=== PATIENT | female | born 1950 | race Caucasian/White ===

== ENCOUNTER 2021-08-04 09:50 | Observation (INO) ==
[2021-08-04] MEDS ORDERED: IOPAMIDOL 100 ML BOTTLE IV ONE (09:51)
--- NOTE | 2021-08-04 09:58 | Emergency Department Note ---
HPI General Chief complaint: Stroke Symptoms Stated complaint: TIA symptoms Time Seen by Provider: 08/04/21 09:57 Source: patient and family Mode of arrival: EMS Limitations: no limitations History of Present Illness HPI Narrative: 71-year-old female presenting with altered mental status. Patient's daughters called EMS as patient was noted this morning to have some slurring of her words and facial droop that resolved after about 30 minutes. Patient's daughters note that since last Thursday she has been more confused than usual and not acting herself. At baseline she ambulates on her own and performs her own ADLs however since last Thursday patient has been more confused and agitated. She has mixed up some of her medications and done odd things like putting 2 socks on one foot. Patient seems to have poor short-term memory and has been prone to angry outbursts towards her daughters which is not normal for her. She reportedly has had a stroke in the past but denies any residual deficits. She is on Eliquis as she has a history of coronary artery disease status post single-vessel CABG, paroxysmal A. fib, and aortic valve replacement in 2020. Family states she has been compliant with her medications. Patient currently has no complaints and is unsure why she is in the emergency department. She denies headache, vision changes, numbness, weakness, paresthesias, or difficulty speaking. She reporte dly did have a fall last week and saw her primary physician but never had a CT of her brain after the fall. Patient is a poor historian but has no other complaints at this time. Related Data Home Medications Medication Instructions Recorded Confirmed aspirin 81 mg chewable tablet 81 mg PO QDAY 06/09/18 08/04/21 apixaban 5 mg tablet (Eliquis) 5 mg PO BID 08/04/21 08/04/21 ibuprofen 800 mg tablet 800 mg PO QDAY PRN 08/04/21 08/04/21 spironolactone 25 1 tab PO QDAY 08/04/21 08/04/21 mg-hydrochlorothiazide 25 mg tablet umeclidinium 62.5 mcg-vilanterol 1 puff CONTINUOUS INHALATION QDAY 08/04/21 08/04/21 25 mcg/actuation powdr for inhalation (Anoro Ellipta) Previous Rx's Medication Instructions Recorded atorvastatin 40 mg tablet 40 mg PO HS #90 tab 07/14/20 albuterol sulfate 90 mcg/actuation 2 puff INHALATION Q6H PRN #18 g 05/22/21 aerosol inhaler (Ventolin HFA) metoprolol succinate 50 mg 50 mg PO BID #180 tab 06/05/21 tablet,extended release 24 hr Allergies Allergy/AdvReac Type Severity Reaction Status Date / Time acetaminophen [From Percocet] Allergy Unknown Verified 08/02/21 10:45 Amoxicillin [From Augmentin] Allergy Nausea Verified 08/02/21 10:45 clavulanic acid Allergy Nausea Verified 08/02/21 10:45 [From Augmentin] codeine Allergy Nausea Verified 08/02/21 10:45 oxycodone [From Percocet] Allergy Unknown Verified 08/02/21 10:45 Penicillins Allergy Unknown Verified 08/02/21 10:45 bupropion [From Wellbutrin] AdvReac Unknown Unknown Verified 08/02/21 10:45 Erythromycin Base AdvReac Unknown Unknown Verified 08/02/21 10:45 meperidine AdvReac Unknown Unknown Verified 08/02/21 10:45 niacin AdvReac Unknown Unknown Verified 08/02/21 10:45 Sulfa (Sulfonamide AdvReac Unknown Unknown Verified 08/02/21 10:45 Antibiotics) Review of Systems ROS ROS Narrative: Narrative: Constitutional: Denies fever or chills Eyes: Denies vision change ENT ED: Denies throat pain Cardiovascular: Denies chest pain Respiratory: Denies shortness of breath or cough Gastrointestinal: Denies abdominal pain, nausea or vomiting Genitourinary: Denies dysuria or frequency Musculoskeletal: Denies back pain Integumentary: Denies rash Neurological: Reports confusion; Denies headache, weakness, numbness or dizziness Psychiatric: Denies anxiety Endocrine: Denies fatigue Hematological/Lymphatic: Denies easy bleeding PFSH Narrative Patient History Narrative: Narrative: Medical/Surgical/Family History All Active Problems (Updated 08/04/21 @ 14:21 by Domingo Jacques MD) TIA (transient ischemic attack) (Acute) Confusion (Acute) Memory loss or impairment (Acute) Asthma (Chronic) COPD (chronic obstructive pulmonary disease) (Chronic) Sleep apnea (Chronic) Other low back pain (Chronic) Right hip pain (Chronic) Prediabetes (Chronic) Hypothyroidism (acquired) (Chronic) Mixed hyperlipidemia (Chronic) Allergic rhinitis (Chronic) Urinary frequency (Chronic) Stage III chronic kidney disease (Chronic) Bladder spasms (Chronic) Hypothyroidism (Chronic) Stage III chronic kidney disease (Chronic) Lumbar radiculopathy (Chronic) Cervical radiculopathy (Chronic) Acute bronchitis (Chronic) Sinusitis (Chronic) Lichen sclerosus (Chronic) Encounter for medication monitoring (Chronic) Thyroid nodule (Chronic) Status post placement of stent in right coronary artery (Chronic) Status post stroke (Chronic) Hypertension, essential (Chronic) Acute bronchitis (Chronic) CAD (coronary artery disease) (Chronic ~2004) Heart attack (Chronic ~2012) Stroke (Chronic ~2014) Migraine (Chronic ~1994) Joint pain (Chronic ~1994) High cholesterol (Chronic ~2004) High blood pressure (Chronic ~1998) Heart trouble (Chronic ~2004) Bleeding tendency (Chronic) Seasonal allergies (Chronic) Arthritis (Chronic ~2005) Anemia (Chronic ~2015) Facial contusion (Chronic) Contusion of leg, left (Chronic) Medical History Anemia (~2015) Arthritis (~2005) Asthma Bleeding tendency CAD (coronary artery disease) (~2004) COPD (chronic obstructive pulmonary disease) Heart attack (~2012) Heart trouble (~2004) High blood pressure (~1998) High cholesterol (~2004) Joint pain (~1994) Migraine (~1994) Other low back pain Seasonal allergies Sleep apnea Stroke (~2014) Surgical History History of angioplasty (~2010) right leg History of appendectomy (~1958) History of cholecystectomy History of heart surgery (~2015) cardiac vascular surgery History of hysterectomy (~1988) History of tonsillectomy (~1952) Family History Grandmother Diabetes Maternal Hypertension Maternal Thyroid disease Maternal Grandfather Heart attack Maternal Mother Migraine Father Hypertension Social History Smoking Status: Former smoker Alcohol Intake Frequency: does not drink Substance Use: does not use Exam Narrative Narrative: Narrative: General Limitations: no limitations General appearance: Present alert, in no apparent distress and other (Confused, poor short-term memory) Head Head: Present atraumatic and normocephalic Eye Eye: Present normal appearance, PERRL, EOMI and visual williamson intact; Absent scleral icterus, conjunctival injection or nystagmus ENT ENT: Present mucous membranes moist Neck Neck: Present normal inspection, full ROM and trachea midline; Absent meningismus or lymphadenopathy Chest Chest: Present symmetric chest wall rise Respiratory Respiratory: Present normal lung sounds bilaterally; Absent respiratory distress, wheezes, stridor, accessory muscle use or prolonged expiratory phase Cardiovascular Cardiovascular: Present regular rate and normal rhythm; Absent systolic murmur or diastolic murmur Adbominal Abdominal: Present soft; Absent distention, tenderness, guarding, rebound, rigidity, organomegaly or mass Extremities Extremities: Present normal inspection; Absent pretibial edema Back Back: Present normal inspection; Absent CVA tenderness (R) or CVA tenderness (L) Neurological Neurological: Present alert, CN II-XII intact and other (Oriented x2. Knows her name and that she is at the hospital but does not know the year); Absent motor sensory deficit Expanded Neurological Patient oriented to: Present person and place; Absent time Speech: Present fluid speech; Absent receptive aphasia, expressive aphasia or dysarthria CRANIAL NERVES: EOM function (II, III, IV, ): Normal, facial sensation (V): Normal, facial palsy (VII): Normal, gag reflex (IX): Normal, spinal accessory function (XI): Normal and tongue deviation (XII): Normal CEREBELLAR FUNCTION: finger to nose: Normal Motor strength - LUE: 5/5 Motor strength - RUE: 5/5 Motor strength - LLE: 5/5 Motor strength - RLE: 5/5 UPPER MOTOR NEURON EXAM: antonio neglect: Normal SENSORY EXAM UPPER EXTREMITY: Normal: light touch SENSORY EXAM LOWER EXTREMITY: Normal: light touch Coma Scale Eye Opening: Spontaneous Coma Scale Motor Response: Obeys Commands Coma Scale Verbal Response: Confused Coma Scale Total: 14 Psychiatric Psychiatric: Present other (Confused and occasionally agitated) Skin Skin: Present warm (WNL) and dry Course Consultations Consultation #1: Dr. Dawson, hospitalist Time: 14:15 Consultation #2: Dr. Dawson, hospitalist Time: 14:50 Consultation #3: Dr. Dawson, hospitalist Time: 15:27 Vital Signs Vital signs: Vital Signs Temperature 98.3 F 08/04/21 10:00 Pulse Rate 79 08/04/21 10:00 Respiratory Rate 20 08/04/21 10:00 Blood Pressure 127/87 08/04/21 10:00 Pulse Oximetry (%) 100 08/04/21 10:00 Temperature 98.3 F 08/04/21 10:00 Pulse Rate 89 08/04/21 13:17 Respiratory Rate 19 08/04/21 15:00 Blood Pressure 116/90 08/04/21 15:00 Pulse Oximetry (%) 98 08/04/21 13:45 MDM MDM Narrative Medical decision making narrative: 71-year-old female presenting with altered mental status. She is confused and appears to have a significant personality change from her baseline which is concerning for subacute CVA. No other focal neurologic deficits on exam. CT br ain without contrast shows possible effacement of the sulci in the left temporal parietal region of the MCA distribution with no definitive hyperdense MCA sign seen. Labs notable for mild LUNA and mild hyponatremia to 130. UA with no signs of infection. CTAs of the head and neck are pending. Patient will likely need admission for possible subacute CVA evaluation. 1525: CTA shows stenosis of the internal carotid artery but no large vessel ischemic occlusion per Dr. Greenberg of radiology. I discussed the patient with Dr. Dawson who will admit for observation. Patient and her family updated on plan and patient is agreeable to staying in the hospital for further evaluation. Lab Data Lab results reviewed: Yes I reviewed the patient's lab results. Result diagrams: 08/04/21 10:16 08/04/21 10:16 Labs: Lab Results 08/04/21 08/04/21 08/04/21 Range/Units 10:16 10:16 11:41 WBC 10.2 (4.5-11.0) K/mcL RBC 4.20 (3.59-5.38) M/mcL Hgb 11.2 (11.2-15.7) g/dL Hct 34.0 L (34.1-44.9) % MCV 81.0 (80.0-100.0) fL MCH 26.7 (26.0-34.0) pg MCHC 32.9 (31.0-36.0) g/dL RDW 15.4 H (11.5-14.5) % Plt Count 272 (140-440) K/mcL MPV 9.7 (7.4-10.4) fL Neut % (Auto) 72.4 (38.0-78.0) % Lymph % (Auto) 18.5 (15.5-49.0) % [place] % (Auto) 6.3 (1.0-12.0) % Eos % (Auto) 2.3 (0.0-7.0) % Baso % (Auto) 0.5 (0.0-2.0) % Lymph # (Auto) 1.88 (1.50-4.80) K/mcL [place] # (Auto) 0.64 (0.10-0.90) K/mcL Eos # (Auto) 0.23 (0.00-0.70) K/mcL Baso # (Auto) 0.05 (0.00-0.30) K/mcL Absolute Neutrophils 7.35 (1.80-8.00) K/mcL Sodium 130 L (133-145) mmol/L Potassium 3.8 (3.3-5.1) mmol/L Chloride 92 L (96-108) mmol/L Carbon Dioxide 27 (22-30) mmol/L Anion Gap 11.0 (8.0-16.0) BUN 28 H (8-23) mg/dL Creatinine 1.4 H (0.6-1.1) mg/dL GFR Calculation 37 Glucose 122 H (70-105) mg/dL Calcium 9.3 (8.6-10.4) mg/dL Total Bilirubin 0.8 (0.1-1.0) mg/dL AST 13 (<32) U/L ALT 11 (<40) U/L Alkaline Phosphatase 107 (39-117) U/L Total Protein 6.5 (5.9-8.4) gm/dL Albumin 3.9 (3.2-5.2) gm/dL Globulin 2.6 (2.2-3.7) gm/dL Albumin/Globulin Ratio 1.5 (1.0-2.3) Urine Color Yellow Urine Appearance Clear (Clear) Urine pH 5.5 (5.0-9.0) Ur Specific [place] 1.015 (1.000-1.035) Urine Protein 30 mg/dl A (Negative) mg/dL Urine Glucose (UA) Negative (Negative) mg/dL Urine Ketones Negative (Negative) mg/dL Urine Occult Blood Trace-intact A (Negative) ricardo/mcL Urine Nitrate Negative (Negative) Urine Bilirubin Negative (Negative) mg/dL Urine Urobilinogen Normal mg/dL Ur Leukocyte Esterase Negative (Negative) /uL Urine RBC 0 (0-3) /hpf Urine WBC < 1 (0-4) /hpf Ur Squamous Epith Cells < 1 (0-4) /hpf Urine Bacteria None (0) /hpf Hyaline Casts 1 (0-2) /lph Urine Mucus Few A (None) /hpf Ur Culture Indicated? No ED POC Tests ED POC Tests: MANDI - SARS Antigen Negative Radiology Data Radiology results reviewed: Yes I reviewed the patient's radiology results. Radiology results narrative: CXR: No focal infiltrate, per my interpretation. CT brain without contrast: No acute intracranial hemorrhage. Possible effacement of sulci in the left temporal parietal region of the MCA distribution versus asymmetrically greater atrophy on the right, per outside radiology interpretation. CTA head and neck: No evidence of large vessel ischemic occlusion however there is stenosis of the left internal carotid artery and a lesion of the thyroid, per my discussion with Dr. Greenberg of radiology. EKG Data EKG #1: EKG attestation: Yes I reviewed and interpreted this EKG. EKG results narrative: Normal sinus rhythm at 79 bpm. Left bundle branch block present. No ST elevation or depression. Interpretation: no acute changes Discharge Plan Patient/Caregiver Discharge Instructions Pt seen by BUSINESS INTELLIGENCE DEVELOPER/PA only: No Clinical Impression: TIA (transient ischemic attack), Confusion Patient Disposition: Xfer As Inpt ([facility]) Follow up with: Zacarias Valles MD [Primary Care Provider] - Prescriptions: No Action metoprolol succinate 50 mg tablet extended release 24 hr 50 mg PO BID Qty: 180 2RF atorvastatin 40 mg tablet 40 mg PO HS Qty: 90 4RF albuterol sulfate [Ventolin HFA] 90 mcg/actuation HFA aerosol inhaler 2 puff INHALATION Q6H PRN (Reason: bronchospasm) Qty: 18 4RF aspirin 81 MG tablet,chewable 81 mg PO QDAY 0RF spironolacton-hydrochlorothiaz 25-25 mg tablet 1 tab PO QDAY 0RF Eliquis 5 mg tablet 5 mg PO BID 0RF Anoro Ellipta 62.5-25 mcg/actuation blister with device 1 puff continuous inhalation QDAY 0RF ibuprofen 800 mg Tablet 800 mg PO QDAY PRN (Reason: Pain) 0RF
[2021-08-04 10:48] LABS: Basophils # (Auto) 0.05 K/mcL (0.00-0.30); Basophils % (Auto) 0.5 % (0.0-2.0); Eosinophils # (Auto) 0.23 K/mcL (0.00-0.70); Eosinophils % (Auto) 2.3 % (0.0-7.0); Hemoglobin 11.2 g/dL (11.2-15.7); Lymphocytes # (Auto) 1.88 K/mcL (1.50-4.80); Lymphocytes % (Auto) 18.5 % (15.5-49.0); Mean Corpuscular HGB Conc 32.9 g/dL (31.0-36.0); Mean Platelet Volume 9.7 fL (7.4-10.4); Monocytes # (Auto) 0.64 K/mcL (0.10-0.90); Monocytes % (Auto) 6.3 % (1.0-12.0); Neutrophils % (Auto) 72.4 % (38.0-78.0); Platelet Count 272 K/mcL (140-440); Red Cell Distribution Width 15.4 % (11.5-14.5); WBC 10.2 K/mcL (4.5-11.0)
[2021-08-04 11:11] LABS: ALT/SGPT 11 U/L (<40); AST/SGOT 13 U/L (<32); Albumin 3.9 gm/dL (3.2-5.2); Albumin/Globulin Ratio 1.5 (1.0-2.3); Alkaline Phosphatase 107 U/L (39-117); Bilirubin,Total 0.8 mg/dL (0.1-1.0); Blood Urea Nitrogen 28 mg/dL (8-23); Calcium 9.3 mg/dL (8.6-10.4); Carbon Dioxide 27 mmol/L (22-30); Chloride 92 mmol/L (96-108); Globulin 2.6 gm/dL (2.2-3.7); Glomerular Filtration Rate 37; Glucose 122 mg/dL (70-105)
[2021-08-04 12:19] LABS: Appearance,Urine Clear (Clear); Bilirubin,Urine Negative (Negative); Color,Urine Yellow; Culture Indicated,Urine No; Glucose,Urine (UA) Negative (Negative); Ketones,Urine Negative (Negative); Leukocyte Esterase,Urine Negative /uL (Negative); Mucus,Urine FEW /hpf; Nitrate,Urine Negative (Negative); PH,Urine 5.5 (5.0-9.0); Specific Gravity,Urine 1.015 (1.000-1.035); Urine Blood Trace-intact ery/mcL (Negative); Urine Hyaline Cast 1 /lph (0-2); Urine RBC 0 /hpf (0-3); Urine Squamous Epithelial Cell < 1 /hpf (0-4); Urine WBC < 1 /hpf (0-4); Urobilinogen,Urine Normal
--- NOTE | 2021-08-04 12:43 | XRay Report ---
CLINICAL INFORMATION: Cough COMPARISON: None. TECHNIQUE: PA and Lateral views FINDINGS: The heart is mildly enlarged. Aortic valve prostheses is again satisfactory position. Mediastinum and pulmonary vasculature are unremarkable. COPD changes noted. No infiltrates. There is a 10 mm nodule in the lateral right upper lobe which is likely granuloma. No effusions. IMPRESSION: Mild cardiomegaly and COPD. No acute disease. 10 mm nodule in the lateral right upper lobe. This is more likely a benign granuloma than a pulmonary malignancy. Consider chest CT Interpreted and Authenticated by: Alfie Greenberg 08/04/21
--- NOTE | 2021-08-04 12:52 | Cat Scan Report ---
CLINICAL INFORMATION: Confusion on anticoagulation COMPARISON: None. TECHNIQUE: 2.5 mm helical slices were obtained in the skull base to vertex. Following reconstruction, axial reformatted images were reviewed at bone and parenchymal windows. The exam was performed using radiation dose optimization techniques including, but not limited to, automated exposure control, adjustment of the mA and/or kV according to patient size and use of iterative reconstruction technique. FINDINGS: The ventricles, sulci, fissures, and cisterns are symmetrically enlarged compatible with mild age-related atrophy. No extra-axial fluid collections are identified. Mild patchy chronic ischemic changes, in the deep cerebral white matter, are expected for age. There is no hemorrhage, mass effect, or edema. Bone windows show no osseous abnormality. IMPRESSION: Mild atrophy and chronic ischemic changes in the deep cerebral white matter-expected for age. No acute findings Interpreted and Authenticated by: Alfie Greenberg 08/04/21
[2021-08-04] MEDS ORDERED: IBUPROFEN 800 MG TABLET PO PRN (15:25)
[2021-08-04] MEDS ORDERED: ALBUTEROL SULFATE 200 PUFF INHALER INH PRN (15:25)
--- NOTE | 2021-08-04 15:43 | Internal Med History&Physical ---
HPI History of Present Illness Patient information: Note initiated : 08/04/21 at 3:35 pm Service Date, if different from initiated Date: [] Patient: Maris Talbot a 71 y/o F admitted on for TIA symptoms. Chief Complaint: [Confusion slurred speech and facial droopiness] Chief complaint: Confusion slurred speech and facial droopiness History of present illness: Ms. Talbot is a 71 year old F history of multiple medical comorbidities including stroke, COPD, hypertensions, dyslipidemia, atrial fibrillation's, CAD status post right heart stent placement, aortic valve replacement, chronic kidney disease stage III, presenting with confusions, slurred speech, and facial droopiness. According to the family, patient started to show increased degree of confusion since the past Thursday. Patient also stated that she fell after tripping on something the past Thursday. Earlier today, family noticed slurred speech and facial droopiness, so they called the EMS and sent patient to our ED for further evaluations. Patient herself does not remember such symptoms. Now the slurred speech and facial droopiness are objectively resolved, although patient still suffer from stuttering of words. Vital signs at ED presentation largely within normal limits. Labs also largely within normal limits no change from her baseline. CT of the head no contrast did not show any acute intracranial pathologies. CTA head and neck result pending. Admission request was made for observations for continued stroke work-up as well as physical therapy occupational therapy and speech therapy evaluations and treatments. Constitutional Constitutional: Absent chills, excessive sweating, fatigue, fever(s) or weakness EENT Eyes: Absent blurry vision, change in vision, loss of vision or other visual disturbances Ears: Absent decreased hearing or tinnitus Nose, mouth and throat: Absent abnormal hearing, dry mouth, headache(s), nasal congestion or sore throat Cardiovascular Cardiovascular: Absent chest pain, chest pain at rest, edema, irregular heart rhythm or palpatations Respiratory Respiratory: Absent cough, dyspnea or wheezing Gastrointestinal Gastrointestinal: Absent abdominal pain, constipation, diarrhea, nausea or vomiting Musculoskeletal Musculoskeletal: Absent back pain, deformity, limited range of motion, muscle cramps, muscle weakness or numbness Integumentary Integumentary: Absent lesions, rash or wounds Neurological Neurological: Present confusion; Absent focal weakness, headache(s) or numbness Psychiatric Psychiatric: Absent anxiety, depression or hallucinations PFSH PFSH All Active Problems (Updated 08/04/21 @ 15:42 by Manjit Dawson MD) Aortic valve replaced (Acute) Atrial fibrillation (Acute) TIA (transient ischemic attack) (Acute) Confusion (Acute) Memory loss or impairment (Acute) Asthma (Chronic) COPD (chronic obstructive pulmonary disease) (Chronic) Sleep apnea (Chronic) Other low back pain (Chronic) Right hip pain (Chronic) Prediabetes (Chronic) Hypothyroidism (acquired) (Chronic) Mixed hyperlipidemia (Chronic) Allergic rhinitis (Chronic) Urinary frequency (Chronic) Stage III chronic kidney disease (Chronic) Bladder spasms (Chronic) Hypothyroidism (Chronic) Stage III chronic kidney disease (Chronic) Lumbar radiculopathy (Chronic) Cervical radiculopathy (Chronic) Acute bronchitis (Chronic) Sinusitis (Chronic) Lichen sclerosus (Chronic) Encounter for medication monitoring (Chronic) Thyroid nodule (Chronic) Status post placement of stent in right coronary artery (Chronic) Status post stroke (Chronic) Hypertension, essential (Chronic) Acute bronchitis (Chronic) CAD (coronary artery disease) (Chronic ~2004) Heart attack (Chronic ~2012) Stroke (Chronic ~2014) Migraine (Chronic ~1994) Joint pain (Chronic ~1994) High cholesterol (Chronic ~2004) High blood pressure (Chronic ~1998) Heart trouble (Chronic ~2004) Bleeding tendency (Chronic) Seasonal allergies (Chronic) Arthritis (Chronic ~2005) Anemia (Chronic ~2015) Facial contusion (Chronic) Contusion of leg, left (Chronic) Medical History Anemia (~2015) Arthritis (~2005) Asthma Bleeding tendency CAD (coronary artery disease) (~2004) COPD (chronic obstructive pulmonary disease) Heart attack (~2012) Heart trouble (~2004) High blood pressure (~1998) High cholesterol (~2004) Joint pain (~1994) Migraine (~1994) Other low back pain Seasonal allergies Sleep apnea Stroke (~2014) Surgical History History of angioplasty (~2010) right leg History of appendectomy (~1958) History of cholecystectomy History of heart surgery (~2015) cardiac vascular surgery History of hysterectomy (~1988) History of tonsillectomy (~1952) Family History Grandmother Diabetes Maternal Hypertension Maternal Thyroid disease Maternal Grandfather Heart attack Maternal Mother Migraine Father Hypertension Social History marital status: occupational status: retired smoking status: Current every day smoker alcohol intake frequency: does not drink substance use type: does not use MEDS/ALLERGIES Home Medications and Allergies Home Medications Medication Instructions Recorded Confirmed Type aspirin 81 mg chewable tablet 81 mg PO QDAY 06/09/18 08/04/21 History atorvastatin 40 mg tablet 40 mg PO HS #90 tab 07/14/20 08/04/21 Rx albuterol sulfate 90 mcg/actuation 2 puff INHALATION Q6H PRN #18 g 05/22/21 08/04/21 Rx aerosol inhaler (Ventolin HFA) metoprolol succinate 50 mg 50 mg PO BID #180 tab 06/05/21 08/04/21 Rx tablet,extended release 24 hr apixaban 5 mg tablet (Eliquis) 5 mg PO BID 08/04/21 08/04/21 History ibuprofen 800 mg tablet 800 mg PO QDAY PRN 08/04/21 08/04/21 History spironolactone 25 1 tab PO QDAY 08/04/21 08/04/21 History mg-hydrochlorothiazide 25 mg tablet umeclidinium 62.5 mcg-vilanterol 1 puff CONTINUOUS INHALATION QDAY 08/04/21 08/04/21 History 25 mcg/actuation powdr for inhalation (Anoro Ellipta) Allergies Allergy/AdvReac Type Severity Reaction Status Date / Time acetaminophen [From Percocet] Allergy Unknown Verified 08/02/21 10:45 Amoxicillin [From Augmentin] Allergy Nausea Verified 08/02/21 10:45 clavulanic acid Allergy Nausea Verified 08/02/21 10:45 [From Augmentin] codeine Allergy Nausea Verified 08/02/21 10:45 oxycodone [From Percocet] Allergy Unknown Verified 08/02/21 10:45 Penicillins Allergy Unknown Verified 08/02/21 10:45 bupropion [From Wellbutrin] AdvReac Unknown Unknown Verified 08/02/21 10:45 Erythromycin Base AdvReac Unknown Unknown Verified 08/02/21 10:45 meperidine AdvReac Unknown Unknown Verified 08/02/21 10:45 niacin AdvReac Unknown Unknown Verified 08/02/21 10:45 Sulfa (Sulfonamide AdvReac Unknown Unknown Verified 08/02/21 10:45 Antibiotics) EXAM Constitutional Vitals: Temp Pulse Resp BP Pulse Ox 36.8 C 89 19 116/90 98 08/04/21 10:00 08/04/21 13:17 08/04/21 15:00 08/04/21 15:00 08/04/21 13:45 General appearance: cooperative and no acute distress Head Head exam: Present atraumatic and normocephalic Eye Eye exam: Present EOMI and PERRL ENT ENT exam: Present mucous membranes moist, normal exam and normal external ear exam Neck Neck exam: Present normal inspection; Absent lymphadenopathy, tenderness or thyromegaly Respiratory Respiratory exam: Absent accessory muscle use, respiratory distress or wheezes Cardiovascular Cardiovascular exam: Present irregular rhythm; Absent JVD GI/Abdominal GI/Abdominal exam: Present normal bowel sounds and soft; Absent organomegaly or tenderness Extremities Exam Extremities exam: Present full ROM, normal capillary refill and normal inspe ction; Absent tenderness Neurological Exam Neurological exam: Present alert, CN II-XII intact and oriented X3; Absent motor sensory deficit Additional comments: stuttering of speech Psychiatric Psychiatric exam: Present normal affect and normal mood; Absent anxious or depressed Skin Skin exam: Present dry and intact DATA Data Completed and Pending Labs: Labs from last 24 hours 08/04/21 08/04/21 08/04/21 11:41 10:16 10:16 WBC 10.2 RBC 4.20 Hgb 11.2 Hct 34.0 L MCV 81.0 MCH 26.7 MCHC 32.9 RDW 15.4 H Plt Count 272 MPV 9.7 Neut % (Auto) 72.4 Lymph % (Auto) 18.5 [place] % (Auto) 6.3 Eos % (Auto) 2.3 Baso % (Auto) 0.5 Lymph # (Auto) 1.88 [place] # (Auto) 0.64 Eos # (Auto) 0.23 Baso # (Auto) 0.05 Absolute Neutrophils 7.35 Sodium 130 L Potassium 3.8 Chloride 92 L Carbon Dioxide 27 Anion Gap 11.0 BUN 28 H Creatinine 1.4 H GFR Calculation 37 Glucose 122 H Calcium 9.3 Total Bilirubin 0.8 AST 13 ALT 11 Alkaline Phosphatase 107 Total Protein 6.5 Albumin 3.9 Globulin 2.6 Albumin/Globulin Ratio 1.5 Urine Color Yellow Urine Appearance Clear Urine pH 5.5 Ur Specific [place] 1.015 Urine Protein 30 mg/dl A Urine Glucose (UA) Negative Urine Ketones Negative Urine Occult Blood Trace-intact A Urine Nitrate Negative Urine Bilirubin Negative Urine Urobilinogen Normal Ur Leukocyte Esterase Negative Urine RBC 0 Urine WBC < 1 Ur Squamous Epith Cells < 1 Urine Bacteria None Hyaline Casts 1 Urine Mucus Few A Ur Culture Indicated? No A/P Assessment and plan (1) TIA (transient ischemic attack): Status: Acute (2) COPD (chronic obstructive pulmonary disease): Status: Chronic (3) Mixed hyperlipidemia: Status: Chronic (4) Stage III chronic kidney disease: Status: Chronic Qualifiers: Chronic kidney disease stage 3 subtype: stage 3b (GFR 30-44) Qualified Code(s): N18.32 - Chronic kidney disease, stage 3b (5) Hypertension, essential: Status: Chronic (6) CAD (coronary artery disease): Status: Chronic Qualifiers: Coronary Disease-Associated Artery/Lesion type: [place] artery [place] vs. transplanted heart: [place] heart Associated angina: without angina Qualified Code(s): I25.10 - Atherosclerotic heart disease of [place] coronary artery without angina pectoris (7) Stroke: Status: Chronic (8) High cholesterol: Status: Chronic (9) Atrial fibrillation: Status: Acute (10) Aortic valve replaced: Status: Acute Narrative A/P Narrative: Assessment and Plans: 1. TIA vs acute ischemic stroke: Observation PCU telemetry NIH stroke scale qshift Neuro Check q4hr Lipid panel HgA1c Aspirin Statin MRI brain stroke protocol CTA head and neck results pending 2D echocardiogram Physical therapy Occupational therapy Speech therapy 2. Essential HTN: HCTZ Metoprolol Succinate Aldactone 3. Mixed dyslipidemia: Continue statin therapy 4. Atrial fibrillation: [id number] score of 6 Metoprolol Succinate Eliquis 5. Chronic kidney disease III: Avoid nephrotoxic agents Saline lock CMP in the morning to trend kidney disease 6. h/o CAD s/p right heart stent placement: Aspirin Statin Metoprolol Succinate 7. s/p aortic valve replacement: Continue to monitor 8. COPD, stable: Continue home regimen of bronchodilators GI ppx: not currently indicated DVT ppx: Eliquis Code status: Full Prognosis: stable Disposition: observation PCU Time Spent With Patient Time: Total time spent is greater than 50% in coordination of care (as documented) at patient's floor/unit and/or counseling patient: Total time spent with greater than 50% in coordination of care (as documented) at patient's floor/unit and/or counseling patient:: 50 - 70 minutes QUALITY Stroke Symptom Onset Unknown: Yes
[2021-08-04] MEDS ORDERED: LACTULOSE 20 GM/30 ML ORAL.SOL PO PRN (16:31)
[2021-08-04] MEDS ORDERED: SENNOSIDES 1 TABLET PO PRN (16:31)
[2021-08-04] MEDS ORDERED: IPRATROPIUM/ALBUTEROL 3 ML AMPUL.NEB NEB PRN (16:31)
[2021-08-04] MEDS ORDERED: ONDANSETRON 4 MG/2 ML VIAL IV PRN (16:31)
[2021-08-04 17:47] LABS: Hemoglobin A1C 5.9 % Hgb (4.0-6.0)
--- NOTE | 2021-08-04 17:51 | EKG ---
[facility] Test Date: 2021-08-04 Pat Name: Maris Talbot Department: ED Room: Gender: Female [employer]: : 1950 Requested By: Domingo Jacques Order Number: [id number] Reading MD: Mk Vargas Measurements Intervals [place] Rate: 79 P: -78 [place]: 286 QRS: -41 QRSD: 144 T: 142 QT: 438 QTc: 503 Interpretive Statements Sinus or ectopic atrial rhythm Prolonged [place] interval IVCD Electronically Signed On 08-04-2021 17:51:33 PDT by Mk Vargas /store/M0/[id number]
--- NOTE | 2021-08-04 18:40 | Cat Scan Report ---
CLINICAL INFORMATION: COMPARISON: None. TECHNIQUE: 80 cc of Isovue-370 were injected intravenously , and using SmartPrep to maximize cerebral arterial opacification, 0.625 mm helical slices were obtained from the skull base through the cerebral vertex. Following reconstruction , sagittal, coronal and axial reformatted images were processed and reviewed at multiple windows and levels. 3D volume rendered and MIP images were acquired at a independent workstation. The exam was performed using radiation dose optimization techniques including, but not limited to, automated exposure control, adjustment of the mA and/or kV according to patient size and use of iterative reconstruction technique. FINDINGS: Moderate fibrofatty calcific plaque are seen within the cavernous portions of both intracranial internal carotid arteries with resultant stenoses less than 50%. The remaining intracranial internal carotid, vertebral, basilar, anterior, middle and posterior cerebral arteries and their branches are well-opacified and normal in contour and caliber without significant stenosis, occlusion or other pathology. Superficial/deep cerebral veins and deep venous sinuses are widely patent. Moderate right and mild left TMJ degeneration noted IMPRESSION: Calcific and fibrofatty atherosclerotic plaque in the cavernous segments of both intracranial internal carotid arteries resulting in mild (less than 50%) stenoses. The remainder of the intracerebral arterial vasculature is normal. Moderate right and mild left TMJ degeneration Interpreted and Authenticated by: Alfie Greenbegr 08/04/21
--- NOTE | 2021-08-04 18:53 | Cat Scan Report ---
CLINICAL INFORMATION: Confusion. Possible subacute CVA COMPARISON: None. TECHNIQUE: 80 cc of Isovue-300 were injected intravenously followed by 40 cc of normal saline flush. Using SmartPrep, 0.625 helical slices were obtained from the thoracic aortic arch through the [place] of [place]. Following reconstruction, 2.5 mm sagittal, coronal and axial reformatted images were processed. MIPS , 3-D volume rendering and CPR images were also constructed. The exam was performed using radiation dose optimization techniques including, but not limited to, automated exposure control, adjustment of the mA and/or kV according to patient size and use of iterative reconstruction technique. FINDINGS: The thoracic aortic arch is normal diameter with minimal intimal thickening and conventional aortic branching. There is a 50% stenosis of the left common carotid artery origin and a critical (greater than 90%) stenosis of the proximal left internal carotid artery. 50% stenosis of the proximal left external carotid artery. The right common and external carotid arteries are widely patent. The brachiocephalic, right subclavian, and both vertebral arteries are widely patent. There is a 50% stenosis of the left subclavian artery origin. At C5-6 broad-based disc spur complex left-sided asymmetry results in moderate central canal and severe left IV foraminal narrowing. There is rotation of the exiting left C6 nerve root. At C6-7, moderate broad disc spur complex results in moderate bilateral IV foraminal and mild central canal narrowing. There is mild ectasia of the exiting C7 nerve roots. Soft tissues are significant for a 6.3 x 3.7 cm solid inhomogeneous mass dominating the left thyroid. IMPRESSION: 1. 90% stenosis of the proximal left internal carotid artery due to heavy calcific plaque. 50% stenosis of the left common carotid artery origin. 2. 50% stenosis of the left subclavian artery origin. 3. Less than 50% stenosis of the proximal right internal carotid artery 4. 6.3 x 3.7 cm solid inhomogeneous mass dominating the entire left lobe of the thyroid. This is more likely benign adenoma than a malignancy. Suggest thyroid ultrasound to evaluate for malignant features. 5. Degeneration of the mid cervical spine as described Interpreted and Authenticated by: Alfie Greenberg 08/04/21
[2021-08-04] MEDS ORDERED: LORazepam 1 MG TABLET PO PRN (19:04)
[2021-08-04] MEDS ORDERED: MELATONIN 3 MG TABLET PO PRN (20:06)
[2021-08-04] MEDS: DOCUSATE SODIUM 100 MG CAPSULE PO SCH (20:53)
[2021-08-04] MEDS: APIXABAN 5 MG TABLET PO SCH (20:55)
[2021-08-04] MEDS: METOPROLOL SUCCINATE 50 MG TAB.XL.24H PO SCH (20:57)
[2021-08-04] MEDS ORDERED: ATORVASTATIN 40 MG TABLET PO SCH (21:00)
[2021-08-04] MEDS: 0.9 % SODIUM CHLORIDE 10 ML SYRINGE IV SCH (21:49)
[2021-08-05] MEDS: 0.9 % SODIUM CHLORIDE 10 ML SYRINGE IV SCH (05:59)
[2021-08-05 06:40] LABS: Basophils # (Auto) 0.05 K/mcL (0.00-0.30); Basophils % (Auto) 0.5 % (0.0-2.0); Eosinophils # (Auto) 0.21 K/mcL (0.00-0.70); Eosinophils % (Auto) 2.2 % (0.0-7.0); Hematocrit 31.1 % (34.1-44.9); Hemoglobin 10.3 g/dL (11.2-15.7); Lymphocytes # (Auto) 1.97 K/mcL (1.50-4.80); Lymphocytes % (Auto) 20.4 % (15.5-49.0); Mean Cell Volume 78.5 fL (80.0-100.0); Mean Corpuscular HGB Conc 33.1 g/dL (31.0-36.0); Mean Platelet Volume 9.7 fL (7.4-10.4); Monocytes # (Auto) 0.63 K/mcL (0.10-0.90); Monocytes % (Auto) 6.5 % (1.0-12.0); Neutrophils % (Auto) 70.4 % (38.0-78.0); Platelet Count 263 K/mcL (140-440); RBC 3.96 M/mcL (3.59-5.38); Red Cell Distribution Width 15.2 % (11.5-14.5); WBC 9.6 K/mcL (4.5-11.0)
[2021-08-05 07:15] LABS: ALT/SGPT 11 U/L (<40); AST/SGOT 14 U/L (<32); Albumin 3.6 gm/dL (3.2-5.2); Albumin/Globulin Ratio 1.6 (1.0-2.3); Alkaline Phosphatase 97 U/L (39-117); Bilirubin,Total 0.7 mg/dL (0.1-1.0); Blood Urea Nitrogen 25 mg/dL (8-23); Calcium 9.4 mg/dL (8.6-10.4); Carbon Dioxide 24 mmol/L (22-30); Chloride 92 mmol/L (96-108); Globulin 2.3 gm/dL (2.2-3.7); Glomerular Filtration Rate 41; Glucose 124 mg/dL (70-105); HDL Cholesterol 34 mg/dL (>40); LDL Cholesterol,Calculated 53 mg/dL (<100); Non-HDL Cholesterol 68 mg/dL (<130); Triglycerides 78 mg/dL (<150)
[2021-08-05 07:16] LABS: Phosphorous 4.3 mg/dL (2.5-4.5)
--- NOTE | 2021-08-05 08:25 | Magnetic Resonance Report ---
History: Transient ischemic attack symptoms, altered mental status, unable to follow commands, prior stroke TECHNIQUE: Stroke protocol was performed using multiple pulse sequences. FINDINGS: The patient was unable to follow commands or remain motionless during the exam. As the result there is motion artifact on many of the images. The T2 FLAIR sequence reveals large amount of white matter disease with patchy areas of abnormal increased signal in the lipscomb radiata and centrum semiovale, predominantly involving the frontal and parietal lobes. There is milder involvement in the occipital and posterior temporal lobes. There is no evidence of an infarct, hemorrhage or neoplasm. The diffusion weighted images show no restricted diffusion to indicate an acute infarct. There is no abnormal extra-axial fluid collection. Ventricles are normal in size. There is relatively little atrophy. Allowing for differences in technique there has been no significant change from the head CT performed yesterday. IMPRESSION: Moderate white matter disease above the tentorium and no evidence of infarct or acute brain injury Interpreted and Authenticated by: Saul Allison 08/05/21
[2021-08-05] MEDS: METOPROLOL SUCCINATE 50 MG TAB.XL.24H PO SCH (08:32)
[2021-08-05] MEDS: DOCUSATE SODIUM 100 MG CAPSULE PO SCH (08:32)
[2021-08-05] MEDS: APIXABAN 5 MG TABLET PO SCH (08:32)
[2021-08-05] MEDS ORDERED: ASPIRIN 81 MG TAB.CHEW PO SCH (09:00)
[2021-08-05] MEDS ORDERED: SPIRONOLACTONE 25 MG TABLET PO SCH (09:00)
[2021-08-05] MEDS ORDERED: HYDROCHLOROTHIAZIDE 25 MG TABLET PO SCH (09:00)
[2021-08-05] MEDS ORDERED: traMADol 50 MG TABLET PO PRN (11:55)
--- NOTE | 2021-08-05 12:31 | Internal Med Progress Note ---
SUBJECTIVE Subjective Patient information: Note initiated : 08/05/21 at 12:23 pm Service Date, if different from initiated Date: [] Patient: Maris Talbot a 71 y/o F admitted on 08/04/21 for TIA symptoms. Chief Complaint: [altered mental status] Interval history: Ms. Talbot is a 71 year old F history of multiple medical comorbidities including stroke, COPD, hypertensions, dyslipidemia, atrial fibrillation's, CAD status post right heart stent placement, aortic valve replacement, chronic kidney disease stage III, presenting with confusions, slurred speech, and facial droopiness. According to the family, patient started to show increased degree of confusion since the past Thursday. Patient also stated that she fell after tripping on something the past Thursday. Earlier today, family noticed slurred speech and facial droopiness, so they called the EMS and sent patient to our ED for further evaluations. Patient herself does not remember such symptoms. Now the slurred speech and facial droopiness are objectively resolved, although patient still suffer from stuttering of words. Vital signs at ED presentation largely within normal limits. Labs also largely within normal limits no change from her baseline. CT of the head no contrast did not show any acute intracranial pathologies. CTA head and neck result pending. Admission request was made for observations for continued stroke work-up as well as physical therapy occupational therapy and speech therapy evaluations and treatments. 08/05: MRI no acute intracranial pathologies. 2D echocardiogram showing LVEF 59% and no other major structural abnormalities such as thrombus. Pending serum ammonia level. Pending PT/OT/PA[employer] H[employer]ING evaluations. Stuttering speech, slurred speech, facial droopiness resolved. Had a long talk with patient and family regarding the results, prognosis, and discharge planning. Constitutional Vitals: Vital Signs Temp Pulse Resp BP Pulse Ox 36.4 C 69 16 132/74 98 08/05/21 08:09 08/05/21 08:09 08/05/21 11:26 08/05/21 11:26 08/05/21 11:26 Period Temp Pulse Resp BP Sys/Sandoval Pulse Ox Last 24 Hr 36.3 C-36.4 C 59-91 15-29 93-175/52-99 88-98 Intake and Output 08/04/21 08/05/21 08/05/21 21:59 05:59 13:59 Intake Total 250 Output Total 750 375 150 Balance -750 -125 -150 Weight 91.49 kg Intake & Output: Intake & Output 08/04/21 08/05/21 08/05/21 21:59 05:59 13:59 Intake Total 250 Output Total 750 375 150 Balance -750 -125 -150 Weight 91.49 kg Intake: Oral 250 Output: Void Amount 750 375 150 Other: Meal Breakfast Percent of Meal Consumed 75% Feeding Ability Independent Urine Appearance Clear Clear Urine Color Straw Straw Urine Odor Normal General appearance: no acute distress and obese; no cooperative Head Head exam: Present atraumatic and normal inspection Eye Eye exam: Present normal appearance ENT ENT exam: Present mucous membranes moist, normal exam and normal external ear exam Neck Neck exam: Present normal inspection Respiratory Respiratory exam: Present normal respiratory exam Cardiovascular Cardiovascular exam: Present irregular rhythm GI/Abdominal GI/Abdominal exam: Present normal bowel sounds Back Exam Back exam: Present normal inspection Neurological Exam Neurological exam: Present alert and oriented X3 Psychiatric Psychiatric exam: Present agitated Skin Skin exam: Present intact and warm OBJ DATA Labs CBC & Chem 7: 08/05/21 05:27 08/05/21 05:26 Labs: Abnormal Lab Results 08/05/21 08/05/21 08/04/21 05:27 05:26 11:41 Hgb 10.3 L Hct 31.1 L MCV 78.5 L RDW 15.2 H Sodium 129 L Chloride 92 L BUN 25 H Creatinine 1.3 H Glucose 124 H HDL Cholesterol 34 L Urine Protein 30 mg/dl A Urine Occult Blood Trace-intact A Urine Mucus Few A 08/04/21 08/04/21 10:16 10:16 Hgb Hct 34.0 L MCV RDW 15.4 H Sodium 130 L Chloride 92 L BUN 28 H Creatinine 1.4 H Glucose 122 H HDL Cholesterol Urine Protein Urine Occult Blood Urine Mucus Meds: Medications Albuterol Sulfate (Albuterol Sulfate 200 Puff Inhaler) 2 puff INH Q6HP PRN PRN Reason: bronchospasm Albuterol/Ipratropium (Ipratropium/Albuterol 3 Ml Ampul.Neb) 3 ml NEB Q4HRT PRN PRN Reason: Wheezing Apixaban (Apixaban 5 Mg Tablet) 5 mg PO BID [facility] Last Admin: 08/05/21 08:32 Dose: 5 mg Documented by: Aspirin (Aspirin 81 Mg Tab.Chew) 81 mg PO DAILY [facility] Last Admin: 08/05/21 08:32 Dose: 81 mg Documented by: Atorvastatin Calcium (Atorvastatin 40 Mg Tablet) 40 mg PO HS [facility] Last Admin: 08/04/21 20:57 Dose: 40 mg Documented by: Docusate Sodium (Docusate Sodium 100 Mg Capsule) 100 mg PO BID [facility] Last Admin: 08/05/21 08:32 Dose: 100 mg Documented by: Hydrochlorothiazide (Hydrochlorothiazide 25 Mg Tablet) 25 mg PO DAILY [facility] Last Admin: 08/05/21 08:32 Dose: 25 mg Documented by: Ibuprofen (Ibuprofen 800 Mg Tablet) 800 mg PO DAILYP PRN; Protocol PRN Reason: Pain Lactulose (Lactulose 20 Gm/30 Ml Oral.Libra) 10 gm PO DAILYP PRN PRN Reason: Constipation Lorazepam (Lorazepam 1 Mg Tablet) 1 mg PO Q6HP PRN PRN Reason: ANXIETY/SEDATION Last Admin: 08/05/21 02:05 Dose: 1 mg Documented by: Melatonin (Melatonin 3 Mg Tablet) 3 mg PO HSP PRN PRN Reason: Insomnia Last Admin: 08/04/21 20:57 Dose: 3 mg Documented by: Metoprolol Succinate (Metoprolol Succinate 50 Mg Tab.Xl.24h) 50 mg PO BID [facility] Last Admin: 08/05/21 08:32 Dose: 50 mg Documented by: Ondansetron HCl (Ondansetron 4 Mg/2 Ml Vial) 4 mg IV Q4HP PRN; Protocol PRN Reason: Nausea And Vomiting Umeclidinium- Vilanterol [Anoro Ellipta] 62.5-25 Mcg /Act Inhaler 1 dose INH DAILY [facility] Last Admin: 08/05/21 08:32 Dose: Not Given Documented by: Senna (Sennosides 1 Tablet) 2 tab PO HSP PRN PRN Reason: Constipation Sodium Chloride (0.9 % Sodium Chloride 10 Ml Syringe) 10 ml IV Q8 [facility] Last Admin: 08/05/21 05:59 Dose: 10 ml Documented by: Spironolactone (Spironolactone 25 Mg Tablet) 25 mg PO DAILY [facility] Last Admin: 08/05/21 08:32 Dose: 25 mg Documented by: Tramadol HCl (Tramadol 50 Mg Tablet) 50 mg PO DAILYP PRN PRN Reason: Pain A/P Assessment and plan (1) TIA (transient ischemic attack): Status: Acute (2) COPD (chronic obstructive pulmonary disease): Status: Chronic (3) Mixed hyperlipidemia: Status: Chronic (4) Stage III chronic kidney disease: Status: Chronic Qualifiers: Chronic kidney disease stage 3 subtype: stage 3b (GFR 30-44) Qualified Code(s): N18.32 - Chronic kidney disease, stage 3b (5) Hypertension, essential: Status: Chronic (6) CAD (coronary artery disease): Status: Chronic Qualifiers: Coronary Disease-Associated Artery/Lesion type: minto artery [place] vs. transplanted heart: minto heart Associated angina: without angina Qualified Code(s): I25.10 - Atherosclerotic heart disease of minto coronary artery without angina pectoris (7) Stroke: Status: Chronic (8) High cholesterol: Status: Chronic (9) Atrial fibrillation: Status: Acute (10) Aortic valve replaced: Status: Acute (11) Delirium: Status: Acute Narrative A/P Narrative: Assessment and Plans: 1. TIA vs acute ischemic stroke: Observation med surg NIH stroke scale qshift Neuro Check q4hr Lipid panel HgA1c Aspirin Statin MRI brain stroke protocol-->no acute intracranial pathologies CTA head and neck--> 90% stenosis of the proximal left internal carotid artery due to heavy calcified plaque. 50% stenosis of the left common carotid artery origin. 50% stenosis of the left subclavian artery origin. Less than 50% stenosis of the proximal right internal carotid artery. Will need follow-up with vascular surgeons to discuss surgical options. 2D echocardiogram --> LVEF 59%. No other structural abnormalities including no endocardial thrombus seen. Physical therapy Occupational therapy Speech therapy 2. Essential HTN: HCTZ Metoprolol Succinate Aldactone 3. Mixed dyslipidemia: Continue statin therapy 4. Atrial fibrillation: [id number] score of 6 Metoprolol Succinate Eliquis 5. Chronic kidney disease III: Avoid nephrotoxic agents Saline lock CMP in the morning to trend kidney disease 6. h/o CAD s/p right heart stent placement: Aspirin Statin Metoprolol Succinate 7. s/p aortic valve replacement: Continue to monitor 8. COPD, stable: Continue home regimen of bronchodilators GI ppx: not currently indicated DVT ppx: Eliquis Code status: DNI DNR Prognosis: stable Disposition: observation med surg Time Spent With Patient Time: Total time spent is greater than 50% in coordination of care (as documented) at patient's floor/unit and/or counseling patient: Total time spent with greater than 50% in coordination of care (as documented) at patient's floor/unit and/or counseling patient:: 35 - 50 minutes QUALITY Stroke Symptom Onset Unknown: Yes VTE Deep Vein Thrombosis/Pulmonary Embolism Present on Admission: No
--- NOTE | 2021-08-05 12:43 | Discharge Summary ---
Discharge Provider Provider Patient information: Note initiated : 08/05/21 at 12:41 pm Service Date, if different from initiated Date: [] Patient: Maris Talbot 71 y/o F admitted on 08/04/21 for TIA symptoms. Chief Complaint: [] Date of admission: 08/04/21 16:06 Discharge date: 08/05/21 Primary care physician: Zacarias Valles MD Attending physician on admission: Manjit Dawson Consults: 08/04/21 Consult to Physician [CONS] Stat Comment: Consulting Provider: Manjit Dawson Reason For Exam: Physician to Consult Attending physician on discharge: Manjit Dawson Discharge Meds Discharge Medications Home Medications aspirin 81 mg chewable tablet 81 mg PO QDAY 06/09/18 [History Confirmed 08/05/21 Last Taken 08/03/21 11:30] albuterol sulfate 90 mcg/actuation aerosol inhaler (Ventolin HFA) 2 puff INHALATION Q6H PRN #18 g 05/22/21 [Rx Confirmed 08/04/21 Last Taken Unknown] metoprolol succinate 50 mg tablet,extended release 24 hr 50 mg PO BID #180 tab 06/05/21 [Rx Confirmed 08/05/21 Last Taken 08/03/21 22:00] apixaban 5 mg tablet (Eliquis) 5 mg PO BID 08/04/21 [History Confirmed 08/05/21 Last Taken 08/03/21 22:00] ibuprofen 800 mg tablet 800 mg PO QDAY PRN 08/04/21 [History Confirmed 08/04/21 Last Taken Unknown] spironolactone 25 mg-hydrochlorothiazide 25 mg tablet 0.5 tab PO QDAY 08/04/21 [History Confirmed 08/05/21 Last Taken 08/03/21 11:30] umeclidinium 62.5 mcg-vilanterol 25 mcg/actuation powdr for inhalation (Anoro Ellipta) 1 puff CONTINUOUS INHALATION QDAY 08/04/21 [History Confirmed 08/04/21 Last Taken Unknown] atorvastatin 40 mg tablet 40 mg PO HS #90 tab 08/05/21 [Rx Confirmed 08/05/21 Last Taken Unknown] tramadol 50 mg tablet 50 mg PO QDP PRN 08/05/21 [History Confirmed 08/05/21 Last Taken 04/17/21 11:30] COURSE Hospital Course Hospital course: Ms. Talbot is a 71 year old F history of multiple medical comorbidities including stroke, COPD, hypertensions, dyslipidemia, atrial fibrillation's, CAD status post right heart stent placement, aortic valve replacement, chronic kidney disease stage III, presenting with confusions, slurred speech, and facial droopiness. According to the family, patient started to show increased degree of confusion since the past Thursday. Patient also stated that she fell after tripping on something the past Thursday. Earlier today, family noticed slurred speech and facial droopiness, so they called the EMS and sent patient to our ED for further evaluations. Patient herself does not remember such symptoms. Now the slurred speech and facial droopiness are objectively resolved, although patient still suffer from stuttering of words. Vital signs at ED presentation largely within normal limits. Labs also largely within normal limits no change from her baseline. CT of the head no contrast did not show any acute intracranial pathologies. CTA head and neck result pending. Admission request was made for observations for continued stroke work-up as well as physical therapy occupational therapy and speech therapy evaluations and treatments. 08/05: MRI no acute intracranial pathologies. 2D echocardiogram showing LVEF 59% and no other major structural abnormalities such as thrombus. Pending serum ammonia level. Pending PT/OT/WIRE STRANDER evaluations. Stuttering speech, slurred speech, facial droopiness resolved. Had a long talk with patient and family regarding the results, prognosis, and discharge planning. Left AMA Discharge diagnosis: Delirium Time Spent with Patient Time attestation: Total time spent providing and/or coordinating discharge services: Time spent: Greater than 30 minutes EXAM Constitutional Vitals: Temp Pulse Resp BP Pulse Ox 36.4 C 69 16 132/74 98 08/05/21 08:09 08/05/21 08:09 08/05/21 11:26 08/05/21 11:26 08/05/21 11:26 General appearance: disheveled and no acute distress; no cooperative Head Head exam: Present atraumatic and normocephalic Eye Eye exam: Present EOMI and PERRL ENT ENT exam: Present mucous membranes moist, normal exam and normal external ear exam Neck Neck exam: Present normal inspection; Absent lymphadenopathy, tenderness or thyromegaly Respiratory Respiratory exam: Absent accessory muscle use, respiratory distress or wheezes Cardiovascular Cardiovascular exam: Present normal rate and rhythm; Absent JVD GI/Abdominal GI/Abdominal exam: Present normal bowel sounds and soft; Absent organomegaly or tenderness Extremities Exam Extremities exam: Present full ROM, normal capillary refill and normal inspection; Absent tenderness Neurological Exam Neurological exam: Present alert, CN II-XII intact and oriented X3; Absent motor sensory deficit Psychiatric Psychiatric exam: Present agitated; Absent anxious, depressed, normal affect or normal mood Skin Skin exam: Present dry and intact Discharge Data Data Completed and Pending Labs on day of discharge: Labs from last 24 hours 08/05/21 08/05/21 08/04/21 05:27 05:26 10:16 WBC 9.6 RBC 3.96 Hgb 10.3 L Hct 31.1 L MCV 78.5 L MCH 26.0 MCHC 33.1 RDW 15.2 H Plt Count 263 MPV 9.7 Neut % (Auto) 70.4 Lymph % (Auto) 20.4 Saline % (Auto) 6.5 Eos % (Auto) 2.2 Baso % (Auto) 0.5 Lymph # (Auto) 1.97 Saline # (Auto) 0.63 Eos # (Auto) 0.21 Baso # (Auto) 0.05 Absolute Neutrophils 6.78 Sodium 129 L Potassium 3.8 Chloride 92 L Carbon Dioxide 24 Anion Gap 13.0 BUN 25 H Creatinine 1.3 H GFR Calculation 41 Glucose 124 H Hemoglobin A1c 5.9 Estim Average Glucose 123 Calcium 9.4 Phosphorus 4.3 Magnesium 1.9 Total Bilirubin 0.7 AST 14 ALT 11 Alkaline Phosphatase 97 Total Protein 5.9 Albumin 3.6 Globulin 2.3 Albumin/Globulin Ratio 1.6 Triglycerides 78 Cholesterol 102 LDL Cholesterol, Calc 53 Non-HDL Cholesterol 68 HDL Cholesterol 34 L Discharge Plan Patient/Caregiver Discharge Instructions Activity: increase activity as tolerated Diet: Regular Diet Prescriptions: Continued metoprolol succinate 50 mg tablet extended release 24 hr 50 mg PO BID Qty: 180 2RF atorvastatin 40 mg tablet 40 mg PO HS Qty: 90 4RF albuterol sulfate [Ventolin HFA] 90 mcg/actuation HFA aerosol inhaler 2 puff INHALATION Q6H PRN (Reason: bronchospasm) Qty: 18 4RF aspirin 81 MG tablet,chewable 81 mg PO QDAY 0RF spironolacton-hydrochlorothiaz 25-25 mg tablet 0.5 tab PO QDAY 0RF Eliquis 5 mg tablet 5 mg PO BID 0RF Anoro Ellipta 62.5-25 mcg/actuation blister with device 1 puff continuous inhalation QDAY 0RF ibuprofen 800 mg Tablet 800 mg PO QDAY PRN (Reason: Pain) 0RF tramadol 50 mg Tablet 50 mg PO QDP PRN (Reason: Pain) 0RF Follow Up Plan Follow up with: Zacarias Valles MD [Primary Care Provider] - Patient Disposition: Left Against Medical Advice Rehab Potential: Good I certify that the patient requires SNF services: No Overall status at discharge: patient is progressing back to baseline Discharge Orders: Discharge Order (Routine); Ordered 08/05/21 Ordered By: Manjit DOYLE VTE Deep Vein Thrombosis/Pulmonary Embolism Present on Admission: No
--- NOTE | 2021-08-05 13:34 | EKG ---
[facility] Test Date: 2021-08-04 Pat Name: Maris Talbot Department: ICU Room: 120B Gender: Female Provider Network Mgr: : [id number] Requested By: Manjit Dawson Order Number: [id number] Reading MD: Monty Omalley D.O. Measurements Intervals [place] Rate: 90 P: CO: QRS: -43 QRSD: 133 T: 133 QT: 403 QTc: 493 Interpretive Statements Possible Atrial flutter with variable block Left bundle branch block Electronically Signed On 08-05-2021 13:33:48 PDT by Monty Omalley D.O. /store/[id number]
== END 2021-08-05 13:00 | disposition left against medical advice (07) ==
LOC: ED 09:50 → ICU 09:50
PROVIDERS: ADMIT Internal Medicine; ATTEND Internal Medicine